=== PATIENT | female | born 1990 | race Two or more races ===

== ENCOUNTER 2016-10-26 09:56 | Inpatient (IN) | payer MEDICAID, OTHER ==
[~2016-10-26] VITALS: Ht 152.4 cm; Wt 93.1 kg
[~2016-10-26 09:56] MED LIST: PREN1TAB56; PREN1TAB60 PO
[2016-10-26] MEDS ORDERED: OXYTOCIN 30U/ 0.9% NaCL 500ML 500 ML IV SCH (10:04)
[2016-10-26] MEDS ORDERED: LACTATED RINGERS 1,000 ML IV SCH ×3 (10:04→13:53)
[2016-10-26 10:12] VITALS: BP 107/62
[2016-10-26] MEDS ORDERED: LACTATED RINGERS 1,000 ML IVBOLUS ONE (10:30)
[2016-10-26] MEDS ORDERED: PLEASE ENTER HEIGHT AND WEIGHT MC SCH (10:30)
[2016-10-26] MEDS ORDERED: SODIUM CITRATE/CITRIC ACID 30 ML UDC PO ONE (10:30)
[2016-10-26] MEDS ORDERED: METOCLOPRAMIDE 5 MG/ML, 2ML IV ONE (10:30)
[2016-10-26] MEDS ORDERED: OXYTOCIN 30U/ 0.9% NaCL 500ML 500 ML ONE (11:18)
[2016-10-26] MEDS ORDERED: SODIUM CITRATE/CITRIC ACID 30 ML UDC ONE (11:18)
[2016-10-26] MEDS ORDERED: METOCLOPRAMIDE 5 MG/ML, 2ML ONE (11:18)
[2016-10-26] MEDS ORDERED: NEWBORN KIT ONE (11:18)
[2016-10-26] MEDS ORDERED: ONDANSETRON 2MG/ML, 2ML IV PRN (14:00)
[2016-10-26] MEDS ORDERED: MISOPROSTOL 200 MCG TABLET PR PRN (14:00)
[2016-10-26] MEDS ORDERED: CARBOPROST TROMETHAMINE 250 MCG/ML, 1ML IM PRN (14:00)
[2016-10-26] MEDS ORDERED: METHYLERGONOVINE 0.2 MG/ML IM PRN (14:00)
[2016-10-26] MEDS ORDERED: ACETAMINOPHEN 325 MG TABLET PO PRN (14:00)
[2016-10-26] MEDS ORDERED: morphine SULFATE 10 MG/ML, 1ML IVPush PRN ×2 (14:00)
[2016-10-26] MEDS ORDERED: KETOROLAC 30 MG/1 ML IV ONE (14:30)
[2016-10-26] MEDS ORDERED: KETOROLAC 30 MG/1 ML ONE (14:32)
[2016-10-26] MEDS ORDERED: OXYcodone/APAP 5/325MG TABLET ONE (14:33)
[2016-10-26] MEDS: OXYTOCIN 30U/ 0.9% NaCL 500ML 500 ML IV SCH ×2 (14:41→23:53)
[2016-10-26] MEDS: LACTATED RINGERS 1,000 ML IV SCH ×2 (14:41→23:53)
[2016-10-26] MEDS: OXYcodone/APAP 5/325MG TABLET PO PRN ×2 (14:49→19:50)
[2016-10-26 15:40] VITALS: BP 116/69
[2016-10-26] MEDS ORDERED: EPHEDRINE 50 MG/ML, 1ML ONE (17:08)
[2016-10-26] MEDS ORDERED: PHENYLEPHRINE 10 MG/ML ONE (17:08)
[2016-10-26] MEDS ORDERED: ONDANSETRON 2MG/ML, 2ML ONE (17:08)
[2016-10-26] MEDS ORDERED: CEFAZOLIN 1,000 MG ONE (17:08)
[2016-10-26 19:45] VITALS: BP 110/66
[2016-10-26] MEDS: DOCUSATE 100 MG CAPSULE PO PRN (19:50)
[2016-10-26] MEDS: IBUPROFEN 600 MG TABLET PO PRN (20:34)
[2016-10-27 00:05] VITALS: BP 103/55
[2016-10-27] MEDS: OXYcodone/APAP 5/325MG TABLET PO PRN ×5 (00:07→19:59)
[2016-10-27] MEDS ORDERED: OXYC-302 PO (03:53)
[2016-10-27] MEDS ORDERED: IBUP800T PO (03:54)
[2016-10-27] MEDS ORDERED: SENN1TAB5 PO (03:54)
[2016-10-27] MEDS: IBUPROFEN 600 MG TABLET PO PRN ×3 (04:02→16:52)
[2016-10-27 04:03] VITALS: BP 104/61
[2016-10-27 08:20] VITALS: BP 103/61
[2016-10-27] MEDS: DOCUSATE 100 MG CAPSULE PO PRN ×2 (08:25→19:59)
[2016-10-27] MEDS: PRENATAL VIT/IRON/FA 1 EACH TABLET PO SCH (08:25)
[2016-10-27] MEDS: LACTATED RINGERS 1,000 ML IV SCH (09:53)
[2016-10-27] MEDS: OXYTOCIN 30U/ 0.9% NaCL 500ML 500 ML IV SCH (09:53)
[2016-10-27] MEDS ORDERED: DIPH,PERTUSS(ACELL),TET VAC/PF NC IM-VACC ONE ×2 (11:53→12:30)
[2016-10-27 12:00] VITALS: BP 101/62
[2016-10-27] MEDS: SIMETHICONE 80 MG CHEW TAB PO PRN (16:52)
[2016-10-27 20:00] VITALS: BP 110/65
[2016-10-28] MEDS: OXYcodone/APAP 5/325MG TABLET PO PRN ×3 (00:22→14:42)
[2016-10-28] MEDS: IBUPROFEN 600 MG TABLET PO PRN ×3 (00:22→14:42)
[2016-10-28 07:29] VITALS: BP 106/66
[2016-10-28] MEDS: PRENATAL VIT/IRON/FA 1 EACH TABLET PO SCH (07:32)
[2016-10-28] MEDS: DOCUSATE 100 MG CAPSULE PO PRN (07:32)
[2016-10-28] MEDS: SIMETHICONE 80 MG CHEW TAB PO PRN (14:42)
== END 2016-10-28 16:25 | disposition home or self-care (01) | DRG 766 ==
LOC: LDIP 09:56 → 2NW 15:30
PROVIDERS: ADMIT Obstetrics & Gynecology; ATTEND Obstetrics & Gynecology
PROC: 10D00Z1 Extraction of Products of Conception, Low, Open Approach (ICD-10-PCS; principal; 2016-10-26)
PROC: 0UB70ZZ Excision of Bilateral Fallopian Tubes, Open Approach (ICD-10-PCS; 2016-10-26)
DX: O34.211 Maternal care for low transverse scar from previous cesarean delivery (principal); O24.420 Gestational diabetes mellitus in childbirth, diet controlled; Z3A.39 39 weeks gestation of pregnancy; Z37.0 Single live birth; Z30.2 Encounter for sterilization
CPT/HCPCS: 36415; 82803; 82962; 85025; 86850; 86900; 88302; 90715; J0690; J1885; J2405; J2270; J2370; J2590; J2765; J7120